=== PATIENT | female | born 1980 | race Two or more races ===

== ENCOUNTER 2021-11-21 15:43 | Emergency (ER) | payer OTHER ==
[~2021-11-21] VITALS: Ht 157.5 cm; Wt 61.7 kg
[~2021-11-21 15:43] MED LIST: CEFTIN500 MG PO; URIN D.S. TABLE1 TAB PO
[2021-11-21] MEDS ORDERED: VISTARIL50 MG PO (16:22)
[2021-11-21] MEDS ORDERED: EFFEXOR XR37.5 MG PO (16:22)
[2021-11-21] MEDS ORDERED: PRENATABS RX T1 EACH PO (16:23)
== END 2021-11-21 20:12 | disposition home or self-care (01) ==
LOC: ER 15:43
DX: O20.9 Hemorrhage in early pregnancy, unspecified (principal); O34.11 Maternal care for benign tumor of corpus uteri, first trimester; Z3A.01 Less than 8 weeks gestation of pregnancy

== ENCOUNTER 2021-11-23 07:22 | Day surgery (SDC) | payer OTHER ==
[~2021-11-23 07:22] MED LIST changes: +EFFEXOR XR37.5 MG PO; +PRENATABS RX T1 EACH PO; +VISTARIL50 MG PO
== END 2021-11-23 16:05 | disposition home or self-care (01) ==
LOC: CIR.AMB 07:22
PROVIDERS: ATTEND Obstetrics & Gynecology
DX: O02.1 Missed abortion (principal); Z20.822 Contact with and (suspected) exposure to COVID-19